=== PATIENT | female | born 1990 | race African-American/Black ===

== ENCOUNTER 2016-11-10 08:25 | Emergency (ER) | payer SELFPAY ==
[~2016-11-10] VITALS: Ht 170.2 cm; Wt 72.6 kg
[2016-11-10 08:58] VITALS: BP 129/80
[2016-11-10] MEDS ORDERED: PRED20TA PO (09:43)
[2016-11-10] MEDS ORDERED: TRAM50TA PO (09:43)
--- NOTE | 2016-11-10 09:43 | PHYS DOC ---
Past Medical History Past Medical History: No Pertinent History Past Surgical History: No Surgical History Alcohol Use: None Drug Use: Marijuana Adult General Chief Complaint Chief Complaint: OTHER COMPLAINTS [facility] Patient is a 26 year old female that presents emergency room today with complaint of atraumatic pain and numbness to the sole of her left foot for the past 3 days. 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 She states that she just Worked earlier this week. She denies any additional symptoms or concerns at this time. She denies any history of diabetes. She denies any history of neurologic disorder such as myasthenia gravis, multiple sclerosis or Kirstie Gehrig's disease. She denies any areas of focal weakness. She denies headache as well. Review of Systems Review of Systems Constitutional: Denies fever or chills [] Eyes: Denies change in visual acuity, redness, or eye pain [] HENT: Denies nasal congestion or sore throat [] Respiratory: Denies cough or shortness of breath [] Cardiovascular: No additional information not addressed in HPI [] GI: Denies abdominal pain, nausea, vomiting, bloody stools or diarrhea [] : Denies dysuria or hematuria [] Musculoskeletal: Denies back pain or joint pain [] Integument: Denies rash or skin lesions [] Neurologic: Denies headache, focal weakness or sensory changes [] Endocrine: Denies polyuria or polydipsia [] Allergies Allergies Allergies Coded Allergies Type Severity Reaction Last Updated Verified No Known Drug Allergies 03/01/16 No Physical Exam Physical Exam Constitutional: Well developed, well nourished, no acute distress, non-toxic appearance. [] HENT: Normocephalic, atraumatic, bilateral external ears normal, oropharynx moist, no oral exudates, nose normal. [] Eyes: PERRLA, EOMI, conjunctiva normal, no discharge. [] Neck: Normal range of motion, no tenderness, supple, no stridor. [] Cardiovascular:Heart rate regular rhythm, no murmur [] Lungs & Thorax: Bilateral breath sounds clear to auscultation [] Abdomen: Bowel sounds normal, soft, no tenderness, no masses, no pulsatile masses. [] Skin: Warm, dry, no erythema, no rash. [] Back: No tenderness, no CVA tenderness. [] Extremities: Left foot is normal in appearance. Skin is warm and dry. Patient is a strong dorsalis pedis and posterior tibialis pulse. Capillary refill is less than 2 seconds. The sole of patient's left foot is normal in appearance. There is tenderness to palpation along the plantar fascia track without palpable defect or deformity. Patient does have a somewhat flattened arch. When compared to patient's right foot, there is no difference in physical exam. Neurologic: Alert and oriented X 3, normal motor function, normal sensory function, no focal deficits noted. [] Psychologic: Affect normal, judgement normal, mood normal. [] Current Patient Data Vital Signs Vital Signs Date Time Temp Pulse Resp B/P Pulse Ox O2 Delivery O2 Flow Rate FiO2 11/10/16 08:58 98.1 99 18 129/80 97 Room Air 98.1 EKG EKG [] Radiology/Procedures Radiology/Procedures [] Course & Med Decision Making Course & Med Decision Making Pertinent Labs and Imaging studies reviewed. (See chart for details) [] Dragon Disclaimer Dragon Disclaimer This electronic medical record was generated, in whole or in part, using a voice recognition dictation system. Departure Departure Impression: Primary Impression: Plantar fasciitis Additional Impression: Paresthesia Disposition: HOME, SELF-CARE Condition: GOOD Referrals: NO PCP (PCP) Patient Instructions: Paresthesia, [id number], Plantar Fasciitis Additional Instructions: 1. Review the discharge instructions provided for self-care and reasons to return the emergency department. 2. Take the medication as prescribed. 3. A pamphlet is provided to you with a list of primary care doctor's offices in the area. You can call this afternoon or Sunday to schedule follow-up appointment and establish care with a primary care doctor. Scripts Tramadol Hcl 50 Mg Tablet1 Tab PO PRN Q6HRS PAIN 15 Days Prov:GUNNAR PATTON 11/10/16 Prednisone 20 Mg Tablet2 Tab PO DAILY 5 Days Prov:GUNNAR PATTON 11/10/16 Problem Qualifiers GUNNAR PATTON Nov 10, 2016 09:43
== END 2016-11-10 09:55 | disposition home or self-care (01) ==
LOC: ER 08:25
DX: M72.2 Plantar fascial fibromatosis (principal); R20.9 Unspecified disturbances of skin sensation; F12.10 Cannabis abuse, uncomplicated
CPT/HCPCS: 99283